=== PATIENT | female | born 1965 | race Caucasian/White ===

== ENCOUNTER 2018-03-25 12:47 | Emergency (ER) | payer MEDICARE, OTHER ==
[2018-03-25 12:53] VITALS: BP 122/65
--- NOTE | 2018-03-25 13:23 | ER Document Report ---
HPI - HPI Patient complains to provider of: right ear pain Onset: This morning Quality of pain: Cramping, Pressure Pain Level: 2 Context: 52 yo female sent from urgent care with dx of ruptured right tm, blood and drainage came out this am. No fever. Associated Symptoms: None Exacerbated by: Denies Relieved by: Denies - ROS JUANA below otherwise negative: Yes Systems Reviewed and Negative: Yes All other systems reviewed and negative Past Medical History - General Information source: Patient - Social History Smoking Status: Current Every Day Smoker Frequency of alcohol use: None Drug Abuse: None Lives with: Family Family History: Reviewed & Not Pertinent - Medical History Medical History: Negative Surgical Hx: Negative Vertical Provider Document - CONSTITUTIONAL Agree With Documented VS: Yes Exam Limitations: No Limitations General Appearance: No Apparent Distress - INFECTION CONTROL TRAVEL OUTSIDE OF THE [place] IN LAST 30 DAYS: No - HEENT Notes: ruptured right tm with blood, exudate base of canal. left tm obscured by wax. - NECK Neck: Supple. negative: Lymphadenopathy-Left, Lymphadenopathy-Right - NEURO Level of Consciousness: Alert - DERM Integumentary: No Rash Course - Re-evaluation Re-evalutation: 03/25/18 13:27 No ability to by antibiotics today. Therefore we will give a shot of Rocephin and they can fill the prescriptions tomorrow. Cannot swallow pills needs liquid form 03/25/18 13:29 - Vital Signs Vital signs: Temp Pulse Resp BP Pulse Ox 97.3 F 62 14 122/65 100 03/25/18 12:52 03/25/18 12:52 03/25/18 12:52 03/25/18 12:52 03/25/18 12:52 Discharge - Discharge Clinical Impression: Ruptured right tympanic membrane, Left ear canal cerumen impaction, right Otitis media Condition: Good Disposition: HOME, SELF-CARE Instructions: Augmentin ([facility]), ENT, Otitis Media ([facility]), Perforated Eardrum ([facility] ), Rocephin ([facility]) Additional Instructions: Call first thing in the morning for ENT appointment No water in the ear Augmentin suspension start tomorrow twice a day Prescriptions: Amox Tr/Potassium Clavulanate [Augmentin Es 600 mg-42.9 mg/5 ml Susp] 8 ml PO Q12H #160 ml Referrals: ALEXANDER SY DO [ASSOCIATE] - Follow up tomorrow
[2018-03-25] MEDS ORDERED: LIDOCAINE 1% INJ-PF (10 MG/ML) 30 ML SDV INFIL ONE (13:28)
[2018-03-25] MEDS ORDERED: CEFTRIAXONE INJ 1000 MG VIAL IM ONE (13:28)
== END 2018-03-25 13:44 | disposition home or self-care (01) ==
LOC: ER 12:47
DX: H66.91 Otitis media, unspecified, right ear (principal); H72.91 Unspecified perforation of tympanic membrane, right ear; H61.22 Impacted cerumen, left ear
CPT/HCPCS: 99282; 96372; J3490; J0696